=== PATIENT | female | born 1990 | race Caucasian/White ===

== ENCOUNTER 2016-10-27 14:00 | Inpatient (IN) | payer OTHER ==
[~2016-10-27] VITALS: Ht 167.6 cm; Wt 61.4 kg
--- NOTE | ~2016-10-27 | EKG ---
[place], [place] ELECTROCARDIOGRAM REPORT NAME: WILFREDO BLACK UNIT #: [id number] ROOM: [id number] DOCTOR: ROBERTO WEBER MD BIRTHDATE: [birth year] DOS: 10/27/2016 TIME: 15:14 in the afternoon. Sinus rhythm, borderline short [place] interval, otherwise normal EKG. ROBERTO WEBER MD CM:EKGRPT:ELECTROCARDIOGRAM REPORT 14 34 ROBERTO WEBER MD
[~2016-10-27 14:00] MED LIST: ATARAX,VISTARIL50 MG PO; CARBIDOPA/LEVOD1 TA1 PO; DICYCLOMINE HCL20 MG PO; HYDROXYZINE PAM50 MG PO; NEXIUM20 M1 PO; ONDANSETRON HYDR4 M1 PO; ONDANSETRON4 MG PO; ROBAXIN750 MG PO; SEPTRA DS 800 M1 TAB PO; SERTRALINE50 MG PO; SINEMET 25-100M1 TAB PO; XANAX1 MG PO
[2016-10-27] MEDS ORDERED: 'XANAX1 MG PO (14:16)
[2016-10-27 14:19] VITALS: BP 117/89
[2016-10-27 14:54] LABS: BASO % 0.2 % (0.0-1.0); EOS % 0.4 % (1.0-4.0); HEMATOCRIT 39.2 % (37.0-47.0); HEMOGLOBIN 13.3 g/dl (12.0-16.0); LYMPH # 1.2 10*3/uL (1.3-4.4); LYMPH % 26.6 % (27.0-41.0); MEAN CELL VOLUME 83.1 fl (81.0-99.0); MEAN CORPUSCULAR HGB 28.2 pg (27.0-31.0); MEAN CORPUSCULAR HGB CONC 33.9 g/dl (33.0-37.0); MEAN PLATELET VOLUME 8.6 fl (9.6-12.3); MONO # 0.2 10*3/uL (0.1-1.0); NEUT # 3.1 10*3/uL (2.3-7.9); NEUT % 68.6 % (47.0-73.0); PLATELET COUNT AUTOMATED 209 10*3/uL (130-400); RED BLOOD COUNT 4.72 10*6/uL (4.10-5.10); RED CELL DISTRI WIDTH 12.9 % (0-14.5); WHITE BLOOD COUNT 4.5 10*3/uL (4.8-10.8)
[2016-10-27 15:08] LABS: BILIRUBIN NEGATIVE (NEGATIVE); BLOOD TRACE-INTACT (NEGATIVE); CLARITY SL CLOUDY (CLEAR); COLOR YELLOW (YELLOW); GLUCOSE NEGATIVE (NEGATIVE); KETONE 1+ (NEGATIVE); LEUKO ESTERASE TRACE (NEGATIVE); NITRITE NEGATIVE (NEGATIVE); PROTEIN TRACE (NEGATIVE)
[2016-10-27 15:10] LABS: ALBUMIN 3.8 gm/dl (3.1-4.5); ALKALINE PHOSPHATASE 83 U/L (45-117); BILIRUBIN, TOTAL 1.1 mg/dl (0.2-1.0); BUN 12 mg/dl (7-24); CARBON DIOXIDE 29 mmol/L (21-32); CHLORIDE 103 mmol/L (98-107); EST GLOM FILT AFRICAN AMERICAN > 60 ml/min; GLUCOSE 86 mg/dL (65-99); POTASSIUM 3.8 mmol/L (3.5-5.1); SGOT/AST 110 IU/L (3-35); SGPT/ALT 144 U/L (12-78); SODIUM 138 mmol/L (136-145)
[2016-10-27 15:18] LABS: URINE AMPHETAMINES < 1000 (1000ng/ml); URINE BARBITURATES < 200 (200ng/ml); URINE COCAINE < 300 (300ng/ml)
[2016-10-27 15:19] LABS: EPITHELIAL CELLS 15-20
[2016-10-27 15:20] LABS: MUCOUS TRACE; URINE REFLEX COMMENT YES (NO)
[2016-10-27 16:52] LABS: PROTHROMBIN TIME 10.3 SECONDS (9.0-12.4)
[2016-10-27 17:00] VITALS: BP 112/73
[2016-10-27 20:00] VITALS: BP 112/71
[2016-10-28] VITALS: BP 95/52
[2016-10-28 04:15] VITALS: BP 103/62
[2016-10-28 08:00] VITALS: BP 101/67
[2016-10-28 12:00] VITALS: BP 106/68
[2016-10-28 16:00] VITALS: BP 103/68
[2016-10-28 20:00] VITALS: BP 129/86
[2016-10-29] VITALS: BP 107/60
[2016-10-29 08:00] VITALS: BP 101/62
[2016-10-29 12:00] VITALS: BP 110/76
[2016-10-29 16:00] VITALS: BP 125/67
[2016-10-29] MEDS ORDERED: ATARAX,VISTARIL50 MG PO (19:46)
[2016-10-29] MEDS ORDERED: ZOFRAN 4 MG ED2 TAB PO (19:46)
[2016-10-29] MEDS ORDERED: CARBIDOPA/LEVOD1 TA1 PO (19:46)
[2016-10-29 20:00] VITALS: BP 110/71
[2016-10-30] VITALS: BP 100/55
[2016-10-30 05:56] LABS: BASO % 0.5 % (0.0-1.0); EOS # 0.1 10*3/uL (0.0-0.4); EOS % 2.5 % (1.0-4.0); HEMATOCRIT 36.5 % (37.0-47.0); HEMOGLOBIN 12.5 g/dl (12.0-16.0); LYMPH # 1.7 10*3/uL (1.3-4.4); LYMPH % 41.8 % (27.0-41.0); MEAN CELL VOLUME 83.5 fl (81.0-99.0); MEAN CORPUSCULAR HGB 28.6 pg (27.0-31.0); MEAN CORPUSCULAR HGB CONC 34.2 g/dl (33.0-37.0); MONO # 0.3 10*3/uL (0.1-1.0); MONO % 6.5 % (3.0-9.0); NEUT % 48.5 % (47.0-73.0); PLATELET COUNT AUTOMATED 201 10*3/uL (130-400); RED BLOOD COUNT 4.37 10*6/uL (4.10-5.10); RED CELL DISTRI WIDTH 12.7 % (0-14.5)
[2016-10-30 06:23] LABS: EST GLOM FILT AFRICAN AMERICAN > 60 ml/min
[2016-10-30 07:55] VITALS: BP 112/68
== END 2016-10-30 13:32 | disposition home or self-care (01) | DRG 897 ==
LOC: ED 14:00 → 5E 14:55 → EDHOLD 14:55 → 5E 16:16
PROVIDERS: Physician Assistant; Student in an Organized Health Care Education/Training Program
DX: F11.23 Opioid dependence with withdrawal (principal); F41.1 Generalized anxiety disorder; R74.0 Nonspecific elevation of levels of transaminase and lactic acid dehydrogenase [LDH]; K21.9 Gastro-esophageal reflux disease without esophagitis; R00.0 Tachycardia, unspecified; Z82.49 Family history of ischemic heart disease and other diseases of the circulatory system; Z79.899 Other long term (current) drug therapy